=== PATIENT | male | born 1945 | race Caucasian/White ===

== ENCOUNTER 2018-12-11 22:22 | Emergency (ER) | payer MEDICARE, BC ==
[~2018-12-11] VITALS: Ht 167.6 cm; Wt 68.5 kg
[~2018-12-11 22:22] MED LIST: ARTHROTEC; ARTHROTEC OR; BACL10TA2 OR; CODE15TA; FLOM0.4C39 OR; LIDO5DIS TOP; MULTIVIT OR; NIFE60TA8; PREG100CA OR; TRAM50TA2; TRAM50TA2 OR; TYLENOL PM OR; VICO5TAB; VICO5TAB OR; VITA25003; VITAMIN B12 OR
[2018-12-11] MEDS ORDERED: LIDOCAINE 2% 5ML JELLY UROJET TOP ONE (23:30)
[2018-12-12 00:10] LABS: APPEARANCE, URINE HAZY (CLEAR); BACTERIA, URINE AUTO 2+ (NEGATIVE); BILIRUBIN, URINE AUTO NEGATIVE (NEGATIVE); BLOOD, URINE BLOOD 2+ (NEGATIVE); COLOR, URINE YELLOW (YELLOW); GLUCOSE, URINE (UA) AUTO NEGATIVE (NEGATIVE); KETONE, URINE AUTO NEGATIVE (NEGATIVE); LEUKOCYTE ESTERASE, URINE AUTO 1+ (NEGATIVE); MUCUS, URINE SMALL (NEGATIVE); NITRITE, URINE AUTO POSITIVE (NEGATIVE); PROTEIN, URINE AUTO NEGATIVE (NEGATIVE); RBC, URINE AUTO 26 /HPF (0-3); SPECIFIC GRAVITY URINE AUTO 1.013 (1.002-1.035); SQUAMOUS EPITHELIAL CELL UR AU 0 /HPF (0-6); UROBILINOGEN, URINE AUTO 0.2 mg/dL (0.0-2.0); WBC, URINE AUTO 74 /HPF (0-3)
[2018-12-12] MEDS ORDERED: KEFL500C17 PO (01:36)
[2018-12-12] MEDS ORDERED: CEPHALEXIN 500 MG CAP PO ONE (01:45)
[2018-12-12 01:57] VITALS: BP 122/69
== END 2018-12-12 02:04 | disposition home or self-care (01) ==
LOC: M ED 22:22
DX: R33.9 Retention of urine, unspecified (principal); N39.0 Urinary tract infection, site not specified; Z88.5 Allergy status to narcotic agent; Z88.8 Allergy status to other drugs, medicaments and biological substances; Z79.899 Other long term (current) drug therapy